=== PATIENT | male | born 2000 | race Caucasian/White ===

== ENCOUNTER 2023-11-05 14:48 | Emergency (ER) | payer OTHER ==
[~2023-11-05] VITALS: Ht 190.5 cm; Wt 104.8 kg
[2023-11-05 14:50] VITALS: BP 142/85; TEMP 96.9; O2SAT 97
== END 2023-11-05 18:16 | disposition left against medical advice (07) ==
LOC: M ED 14:48
DX: Z53.21 Procedure and treatment not carried out due to patient leaving prior to being seen by health care provider (principal)